=== PATIENT | female | born 1935 | race Caucasian/White ===

== ENCOUNTER 2019-07-10 05:12 | Emergency (ER) | payer OTHER ==
--- NOTE | 2019-07-10 06:37 | EDPHYS ---
Physician Documentation [facility] Name: Harini Torres Age: 84 yrs Sex: Female : 1935 Arrival Date: 07/10/2019 Time: 05:15 Bed 2 Private MD: ED Physician Cristiano Noble HPI: 07/10 07:08 This 84 yrs old Female presents to ER via Ambulatory with complaints of kdr Vaginal Itching. 07:08 The patient presents with Vaginal itching. Onset: The symptoms/episode began/occurred kdr gradually, 3 day(s) ago. Modifying factors: The symptoms are alleviated by nothing, the symptoms are aggravated by nothing. Associated signs and symptoms: The patient has no apparent associated signs or symptoms. Severity of symptoms: At their worst the symptoms were moderate. The patient has experienced similar episodes in the past, multiple times, chronically. The patient has been recently seen by a physician:. The patient has been on abx for the past three months and has been getting yeast infections when she is not on an appropriate antifungal. She ran out of her clotrimazole on Thursday and the doctors office did not call in any refill. Historical: - Allergies: 05:32 No Known Allergies; bb - Home Meds: 05:32 valsartan oral oral [Active]; amlodipine 2.5 mg tab 1 tab twice a day [Active]; bb metoprolol tartrate 50 mg Oral tab 1 tab 2 times per day [Active]; antibiotic [Active]; - PMHx: 05:32 Hypertension; bb - PSHx: 05:32 Hysterectomy; bb - Immunization history:: Adult Immunizations up to date. - Coronavirus screen:: The patient has NOT traveled to [place] in the past 14 days. Proceed with normal triage process as indicated. - Social history:: Smoking status: Patient denies any tobacco usage or history of. - Ebola Screening: : No symptoms or risks identified at this time. ROS: 07:08 Constitutional: Negative for fever, chills, and weight loss. kdr 07:08 : Positive for vaginal itching, Negative for urinary symptoms, urinary frequency, small amounts, hematuria, pelvic pain. Exam: 07:08 Constitutional: This is a well developed, well nourished patient who is awake, alert, kdr and in no acute distress. Head/Face: Normocephalic, atraumatic. Chest/axilla: Normal chest wall appearance and motion. Nontender with no deformity. No lesions are appreciated. Cardiovascular: Regular rate and rhythm with a normal S1 and S2. No gallops, murmurs, or rubs. Normal PMI, no JVD. No pulse deficits. Respiratory: Lungs have equal breath sounds bilaterally, clear to auscultation and percussion. No rales, rhonchi or wheezes noted. No increased work of breathing, no retractions or nasal flaring. Abdomen/GI: Soft, non-tender, with normal bowel sounds. No distension or tympany. No guarding or rebound. No evidence of tenderness throughout. Back: No spinal tenderness. No costovertebral tenderness. Full range of motion. Skin: Warm, dry with normal turgor. Normal color with no rashes, no lesions, and no evidence of cellulitis. MS/ Extremity: Pulses equal, no cyanosis. Neurovascular intact. Full, normal range of motion. Neuro: Awake and alert, GCS 15, oriented to person, place, time, and situation. Cranial nerves II-XII grossly intact. Motor strength 5/5 in all extremities. Sensory grossly intact. Cerebellar exam normal. Normal gait. Psych: Awake, alert, with orientation to person, place and time. Behavior, mood, and affect are within normal limits. Vital Signs: 05:32 BP 188 / 82; Pulse 60; Resp 18 S; Temp 97.8(O); Pulse Ox 99% on R/A; Weight 64.41 kg bb (R); Height 5 ft. 8 in. (172.72 cm) (R); Pain 6/10; 06:30 BP 140 / 62; Pulse 62; Resp 18; Pulse Ox 98% on R/A; lp1 05:32 Body Mass Index 21.59 (64.41 kg, 172.72 cm) bb MDM: 06:35 Patient medically screened. kdr 07:08 Data reviewed: vital signs, nurses notes. Counseling: I had a detailed discussion with kdr the patient and/or guardian regarding: the historical points, exam findings, and any diagnostic results supporting the discharge/admit diagnosis, the need for outpatient follow up. Administered Medications: No medications were administered Disposition: 07/10/19 06:35 Discharged to Home. Impression: Candidiasis of vulva and vagina. - Condition is Stable. - Discharge Instructions: Vaginal Yeast Infection, Adult. - Prescriptions for Clotrimazole 1 % Topical Cream - Apply to affected area 1 application by TOPICAL route every 12 hours; 15 gram. - Medication Reconciliation Form, Thank You Letter, Antibiotic Education, Prescription Opioid Use form. - Follow up: Private Physician; When: 2 - 3 days; Reason: If symptoms return, Further diagnostic work-up, Recheck today's complaints, Continuance of care, Re-evaluation by your physician. - Problem is an ongoing problem. - Symptoms are unchanged. Signatures: Cristiano Noble MD MD kdr Lu Sena RN RN bb Tracie Lindsay RN RN lp1 Corrections: (The following items were deleted from the chart) 06:43 06:35 07/10/2019 06:35 Discharged to Home. Impression: Candidiasis of vulva and vagina. lp1 Condition is Stable. Discharge Instructions: Vaginal Yeast Infection, Adult. Prescriptions for Clotrimazole 1 % Topical Cream - Apply to affected area 1 application by TOPICAL route every 12 hours; 15 gram. and Forms are Medication Reconciliation Form, Thank You Letter, Antibiotic Education, Prescription Opioid Use. Follow up: Private Physician; When: 2 - 3 days; Reason: If symptoms return, Further diagnostic work-up, Recheck today's complaints, Continuance of care, Re-evaluation by your physician. Problem is an ongoing problem. Symptoms are unchanged. kdr
--- NOTE | 2019-07-10 06:37 | ER ---
Nurse's Notes [facility] Name: Harini Torres Age: 84 yrs Sex: Female : 1935 Arrival Date: 07/10/2019 Time: 05:15 Bed 2 Private MD: Diagnosis: Candidiasis of vulva and vagina Presentation: 07/10 05:28 Presenting complaint: Patient states: she has been treated for a lung infection for a bb year and has had a yeast infection which keeps coming back it is extremely itchy and she is scratching herself raw. Transition of care: patient was not received from another setting of care. Onset of symptoms was July 10, 2019. Risk Assessment: Do you want to hurt yourself or someone else? Patient reports no desire to harm self or others. Initial Sepsis Screen: Does the patient meet any 2 criteria? No. Patient's initial sepsis screen is negative. Does the patient have a suspected source of infection? No. Patient's initial sepsis screen is negative. Care prior to arrival: None. 05:28 Method Of Arrival: Ambulatory bb 05:28 Acuity: MARTHA 5 bb Historical: - Allergies: 05:32 No Known Allergies; bb - Home Meds: 05:32 valsartan oral oral [Active]; amlodipine 2.5 mg tab 1 tab twice a day [Active]; bb metoprolol tartrate 50 mg Oral tab 1 tab 2 times per day [Active]; antibiotic [Active]; - PMHx: 05:32 Hypertension; bb - PSHx: 05:32 Hysterectomy; bb - Immunization history:: Adult Immunizations up to date. - Coronavirus screen:: The patient has NOT traveled to [place] in the past 14 days. Proceed with normal triage process as indicated. - Social history:: Smoking status: Patient denies any tobacco usage or history of. - Ebola Screening: : No symptoms or risks identified at this time. Screenin:22 Abuse screen: Denies threats or abuse. Denies injuries from another. Nutritional lp1 screening: No deficits noted. Tuberculosis screening: No symptoms or risk factors identified. Fall Risk None identified. Assessment: 06:00 General: Appears in no apparent distress. Behavior is calm, cooperative, appropriate lp1 for age. Pain: Complains of pain in groin Quality of pain is described as burning. Neuro: No deficits noted. Cardiovascular: No deficits noted. Respiratory: No deficits noted. GI: No signs and/or symptoms were reported involving the gastrointestinal system. : Reports vaginal itching. EENT: No signs and/or symptoms were reported regarding the EENT system. Derm: Skin is pink, warm \T\ dry. Musculoskeletal: No deficits noted. Vital Signs: 05:32 BP 188 / 82; Pulse 60; Resp 18 S; Temp 97.8(O); Pulse Ox 99% on R/A; Weight 64.41 kg bb (R); Height 5 ft. 8 in. (172.72 cm) (R); Pain 6/10; 06:30 BP 140 / 62; Pulse 62; Resp 18; Pulse Ox 98% on R/A; lp1 05:32 Body Mass Index 21.59 (64.41 kg, 172.72 cm) ED Course: 05:15 Patient arrived in ED. ag3 05:21 Cristiano Noble MD is Attending Physician. kdr 05:30 Triage completed. bb 05:32 Arm band placed on Patient placed in an exam room, on a stretcher, on pulse oximetry. bb 06:06 Tracie Lindsay, RN is Primary Nurse. lp1 06:22 Patient has correct armband on for positive identification. lp1 06:22 No provider procedures requiring assistance completed. Patient did not have IV access lp1 during this emergency room visit. Administered Medications: No medications were administered Outcome: 06:35 Discharge ordered by . kdr 06:42 Discharged to home ambulatory. lp1 06:42 Condition: good 06:42 Discharge instructions given to patient, Instructed on discharge instructions, follow up and referral plans. medication usage, Demonstrated understanding of instructions, follow-up care, medications, Prescriptions given X 1. 06:43 Patient left the ED. lp1 Signatures: Cristiano Noble MD MD [facility] Lu Sena RN RN bb Tracie Lindsay, RN RN lp1 Abby Carrillo ag3
[2019-07-10 07:00] VITALS: BP 140/62; O2SAT 98
[2019-07-10 07:01] VITALS: TEMP 97.8
== END 2019-07-10 06:43 | disposition home or self-care (01) ==
LOC: ER 05:12
DX: B37.3 Candidiasis of vulva and vagina (principal); I10 Essential (primary) hypertension
CPT/HCPCS: 99283